=== PATIENT | male | born 1980 | race Caucasian/White ===

== ENCOUNTER 2019-07-14 16:18 | Emergency (ER) | payer SELFPAY ==
[~2019-07-14] VITALS: Ht 180.3 cm; Wt 94.4 kg
[2019-07-14] MEDS ORDERED: NS 1,000 ML IV ONE (17:00)
[2019-07-14 17:13] LABS: BASO # 0.1 10^3/uL (0.0-0.2); BASO % 0.5 % (0.0-1.0); EOS % 0.4 % (0.0-3.0); HEMATOCRIT 50.9 % (42.0-52.0); HEMOGLOBIN 17.7 g/dl (13.5-17.5); LYMPH % 21.5 % (24.0-44.0); MEAN CORPUSCULAR HEMOGLOBIN 29.9 pg (27.0-33.0); MEAN CORPUSCULAR HGB CONC 34.8 g/dl (32.0-36.5); MEAN CORPUSCULAR VOLUME 86.1 fl (80.0-96.0); MONO # 0.6 10^3/uL (0.0-0.8); MONO % 6.5 % (0.0-5.0); NEUTROPHILS # 6.5 10^3/uL (1.5-8.5); NEUTROPHILS % 70.9 % (36.0-66.0); PLATELET COUNT, AUTOMATED 276 10^3/uL (150-450); RED BLOOD COUNT 5.91 10^6/uL (4.30-6.10); WHITE BLOOD COUNT 9.1 10^3/uL (4.0-10.0)
--- NOTE | 2019-07-14 17:28 | REP ---
HISTORY: Abdominal pain. COMPARISON: None. FINDINGS: The superior mediastinal structures are midline. The cardiac silhouette is unremarkable in size, shape and position. The diaphragmatic surfaces of the lungs are regular and the costophrenic angles are clear. The pulmonary jackson are clear. The imaged osseous structures are intact. The lung jackson are hyperexpanded. IMPRESSION: There is no acute cardiopulmonary disease. The lung jackson are hyperexpanded. Electronically Signed by Catalino Oneal DO 07/14/2019 06:47 P
[2019-07-14 17:29] LABS: INR 1.03; PROTHROMBIN TIME 13.2 SECONDS (11.8-14.0)
[2019-07-14 17:30] LABS: PARTIAL THROMBOPLASTIN TIME 29.4 SECONDS (25.0-38.4)
[2019-07-14 17:38] LABS: ALBUMIN 4.9 GM/DL (3.2-5.2); ALT/SGPT 32 U/L (12-78); AMYLASE 49 U/L (25-115); BILIRUBIN,DIRECT 0.2 MG/DL (0.0-0.2); BILIRUBIN,TOTAL 0.4 MG/DL (0.2-1.0); BLOOD UREA NITROGEN 12 MG/DL (7-18); CALCIUM LEVEL 10.2 MG/DL (8.5-10.1); CARBON DIOXIDE LEVEL 25 MEQ/L (21-32); CHLORIDE LEVEL 107 MEQ/L (98-107); CREATININE FOR GFR 0.98 MG/DL (0.70-1.30); GLOMERULAR FILTRATION RATE > 60.0 (>60); GLUCOSE, FASTING 101 MG/DL (70-100); LIPASE 112 U/L (73-393); POTASSIUM SERUM 4.2 MEQ/L (3.5-5.1); SODIUM LEVEL 139 MEQ/L (136-145); TOTAL PROTEIN 8.4 GM/DL (6.4-8.2)
[2019-07-14] MEDS ORDERED: ISOVUE-370 76% 100ML VIAL (Q9967) As Ordered ONE (17:43)
--- NOTE | 2019-07-14 18:07 | REPVR ---
PROCEDURE INFORMATION: Exam: CT Abdomen And Pelvis With Contrast Exam date and time: 07/14/2019 5:48 PM Age: 38 years old Clinical indication: Abdominal pain; Generalized; Additional info: Rectal bleeding, n/v, night sweats TECHNIQUE: Imaging protocol: Computed tomography of the abdomen and pelvis with intravenous contrast. Radiation optimization: All CT scans at this facility use at least one of these dose optimization techniques: automated exposure control; mA and/or kV adjustment per patient size (includes targeted exams where dose is matched to clinical indication); or iterative reconstruction. Contrast material: ISOVUE 370; Contrast volume: 100 ml; Contrast route: IV; COMPARISON: No relevant prior studies available. FINDINGS: Liver: There is a diffuse decrease in hepatic parenchymal density, consistent with steatosis. Gallbladder and bile ducts: Normal. No calcified stones. No ductal dilation. Pancreas: Normal. No ductal dilation. Spleen: Normal. No splenomegaly. Adrenals: Normal. No mass. Kidneys and ureters: Normal. No hydronephrosis. Stomach and bowel: Unremarkable. No obstruction. No mucosal thickening. Appendix: No evidence of appendicitis. Intraperitoneal space: Unremarkable. No free air. No significant fluid collection. Vasculature: Unremarkable. No abdominal aortic aneurysm. Lymph nodes: Unremarkable. No enlarged lymph nodes. Bladder: Unremarkable as visualized. Reproductive: Unremarkable as visualized. Bones/joints: Unremarkable. No acute fracture. Soft tissues: Unremarkable. IMPRESSION: 1. There is a diffuse decrease in hepatic parenchymal density, consistent with steatosis. 2. No acute findings. Electronically signed by: Villa Pinto On 07/14/2019 18:07:28 PM
[2019-07-14 18:38] VITALS: BP 172/109
[2019-07-14] MEDS ORDERED: LISI-538 PO (18:40)
[2019-07-14] MEDS ORDERED: lisinopriL 20 MG TAB PO ONE (18:45)
== END 2019-07-14 18:51 | disposition home or self-care (01) ==
LOC: M ED 16:18
DX: K64.4 Residual hemorrhoidal skin tags (principal); K62.5 Hemorrhage of anus and rectum; R11.2 Nausea with vomiting, unspecified; I10 Essential (primary) hypertension; F17.210 Nicotine dependence, cigarettes, uncomplicated
CPT/HCPCS: 71046; 74177; 80048; 80076; 82150; 83690; 85025; 85610; 85730; 96360; 99284; Q9967

== ENCOUNTER → 2020-12-07 | Outpatient (CLI) | payer SELFPAY ==
[~2020-12-07] MED LIST: LISI20TA33 PO
--- NOTE | 2020-12-07 15:11 | REP ---
INDICATION: W[place]. COMPARISON: July 13. TECHNIQUE: Two views.. FINDINGS: The lungs are well inflated and free of infiltrate. The pleural angles are sharp. The heart size is normal. Pulmonary vasculature is not increased. No significant bony abnormality is seen. IMPRESSION: Negative chest x-ray. <Electronically signed by Sundar Livingston > 12/07/20 [id number]
== END ==
LOC: M ADAMS 14:49
PROVIDERS: ATTEND Physician Assistant
DX: R06.00 Dyspnea, unspecified (principal)

== ENCOUNTER → 2020-12-07 | Outpatient (REF) | payer SELFPAY ==
[2020-12-07 16:40] LABS: BASO # 0.1 10^3/uL (0.0-0.2); BASO % 0.6 % (0.0-1.0); EOS # 0.2 10^3/uL (0.0-0.5); EOS % 1.3 % (0.0-3.0); HEMATOCRIT 48.2 % (42.0-52.0); HEMOGLOBIN 16.9 g/dl (13.5-17.5); LYMPH # 2.4 10^3/uL (1.5-5.0); LYMPH % 20.5 % (24.0-44.0); MEAN CORPUSCULAR HEMOGLOBIN 31.7 pg (27.0-33.0); MEAN CORPUSCULAR HGB CONC 35.1 g/dl (32.0-36.5); MEAN CORPUSCULAR VOLUME 90.4 fl (80.0-96.0); MONO % 8.5 % (2.0-8.0); NEUTROPHILS # 7.9 10^3/uL (1.5-8.5); NEUTROPHILS % 68.3 % (36.0-66.0); PLATELET COUNT, AUTOMATED 208 10^3/uL (150-450); RED BLOOD COUNT 5.33 10^6/uL (4.30-6.10); WHITE BLOOD COUNT 11.5 10^3/uL (4.0-10.0)
[2020-12-07 17:13] LABS: ALBUMIN 4.5 GM/DL (3.2-5.2); ALT/SGPT 161 U/L (12-78); BILIRUBIN,TOTAL 0.5 MG/DL (0.2-1.0); BLOOD UREA NITROGEN 18 MG/DL (7-18); CALCIUM LEVEL 9.5 MG/DL (8.5-10.1); CARBON DIOXIDE LEVEL 22 MEQ/L (21-32); CHLORIDE LEVEL 108 MEQ/L (98-107); CHOLESTEROL LEVEL 238 MG/DL (<200); CHOLESTEROL RISK RATIO 3.552 (<5); CREATININE FOR GFR 1.06 MG/DL (0.70-1.30); FREE T4 0.86 NG/DL (0.76-1.46); GLOMERULAR FILTRATION RATE > 60.0 (>60); GLUCOSE, FASTING 79 MG/DL (70-100); HDL CHOLESTEROL 67 MG/DL (>40); NON-HDL-C 171 MG/DL; POTASSIUM SERUM 3.9 MEQ/L (3.5-5.1); SODIUM LEVEL 138 MEQ/L (136-145); TOTAL PROTEIN 7.8 GM/DL (6.4-8.2); TRIGLYCERIDES LEVEL 405 MG/DL (<150)
[2020-12-07 17:15] LABS: CREATININE, URINE 97.1 MG/DL; FOLATE 10.6 NG/ML; MALB URINE SIEMENS 12.3 MG/L; MAU/CREAT RATIO 12.6 MCG/MG (0.0-30.0); TOTAL 25(OH) VITAMIN D 16.9 NG/ML (30.0-100.0); VITAMIN B12 LEVEL 395 PG/ML
== END ==
LOC: M SFHCADAM 14:49
PROVIDERS: ATTEND Physician Assistant
DX: R06.00 Dyspnea, unspecified (principal); F17.210 Nicotine dependence, cigarettes, uncomplicated; Z72.89 Other problems related to lifestyle; I10 Essential (primary) hypertension; R53.82 Chronic fatigue, unspecified; G56.02 Carpal tunnel syndrome, left upper limb; Z13.220 Encounter for screening for lipoid disorders

== ENCOUNTER 2021-01-16 07:49 | Outpatient (CLI) | payer OTHER ==
[~2021-01-16 07:49] MED LIST changes: +ALBUTEROL 90 MCG/ACT 8GM HFA INHALER INH PRN; +ALBUTEROL SULFATE 2.5 MG/0.5 ML INH NEB SOLN INH PRN; +EPINEPHrine INJ 1 MG/ML 1ML AMP IM PRN; +NS 1,000 ML IV SCH; +diphenhydrAMINE 50MG/ML VIAL (J1200) IV PRN; +methylPREDNISolone 125MG 2ML VIAL IV PRN
[2021-01-16 08:05] VITALS: BP 182/82
[2021-01-16] MEDS ORDERED: diphenhydrAMINE 25MG CAP PO ONE (09:00)
[2021-01-16] MEDS ORDERED: methylPREDNISolone 125MG 2ML VIAL IV ONE (09:00)
[2021-01-16] MEDS ORDERED: ACETAMINOPHEN TAB 650MG DOSE (2X325MG) PO ONE (09:00)
[2021-01-16] MEDS ORDERED: BAMLANIVIMAB 700 MG, ETESEVIMAB 1,400 MG in NS 250 ML IV ONE (09:00)
[2021-01-16 09:45] VITALS: BP 156/94
[2021-01-16 10:15] VITALS: BP 178/107
[2021-01-16 10:45] VITALS: BP 177/98
[2021-01-16] MEDS ORDERED: amLODIPine 5 MG TAB PO ONE (11:40)
[2021-01-16 11:45] VITALS: BP 165/98
[2021-01-16 11:51] VITALS: BP 177/98
== END 2021-01-16 14:00 | disposition home or self-care (01) ==
LOC: M OPCLI4PR 07:49
PROVIDERS: ATTEND Family Medicine
DX: U07.1 COVID-19 (principal)
CPT/HCPCS: 96375; J2930; M0245

== ENCOUNTER → 2021-06-27 | Outpatient (REF) | payer MEDICAID, OTHER ==
[~2021-06-27] MED LIST changes: -ALBUTEROL 90 MCG/ACT 8GM HFA INHALER INH PRN; -ALBUTEROL SULFATE 2.5 MG/0.5 ML INH NEB SOLN INH PRN; -EPINEPHrine INJ 1 MG/ML 1ML AMP IM PRN; -NS 1,000 ML IV SCH; -diphenhydrAMINE 50MG/ML VIAL (J1200) IV PRN; -methylPREDNISolone 125MG 2ML VIAL IV PRN
[2021-06-27 16:47] LABS: ALBUMIN 4.7 GM/DL (3.2-5.2); ALT/SGPT 144 U/L (12-78); BILIRUBIN,TOTAL 0.5 MG/DL (0.2-1.0); BLOOD UREA NITROGEN 10 MG/DL (7-18); CALCIUM LEVEL 9.4 MG/DL (8.5-10.1); CARBON DIOXIDE LEVEL 24 MEQ/L (21-32); CHLORIDE LEVEL 106 MEQ/L (98-107); FERRITIN 593 NG/ML (26-388); GLOMERULAR FILTRATION RATE > 60.0 (>60); GLUCOSE, FASTING 98 MG/DL (70-100); POTASSIUM SERUM 4.2 MEQ/L (3.5-5.1); SODIUM LEVEL 139 MEQ/L (136-145)
[2021-06-29 21:21] LABS: ANA (HEP2) Positive (.); ANTI-MITOCHONDRIAL ANTIBODY <20.0 Units (0.0-20.0)
== END ==
LOC: M SFHCADAM 11:44
PROVIDERS: ATTEND Physician Assistant
DX: R74.8 Abnormal levels of other serum enzymes (principal)

== ENCOUNTER → 2021-08-06 | Outpatient (CLI) | payer OTHER | LOC: M WHC 06:39 | PROVIDERS: ATTEND Physician Assistant | DX: R74.8 Abnormal levels of other serum enzymes (principal); Z72.89 Other problems related to lifestyle ==

== ENCOUNTER → 2021-08-29 | Outpatient (REF) | payer OTHER ==
[2021-08-29 13:17] LABS: ALBUMIN 4.4 GM/DL (3.2-5.2); ALT/SGPT 105 U/L (12-78); BILIRUBIN,TOTAL 0.4 MG/DL (0.2-1.0); BLOOD UREA NITROGEN 12 MG/DL (7-18); CALCIUM LEVEL 10.5 MG/DL (8.5-10.1); CARBON DIOXIDE LEVEL 23 MEQ/L (21-32); CHLORIDE LEVEL 106 MEQ/L (98-107); CREATININE FOR GFR 0.98 MG/DL (0.70-1.30); GLOMERULAR FILTRATION RATE > 60.0 (>60); GLUCOSE, FASTING 104 MG/DL (70-100); POTASSIUM SERUM 4.1 MEQ/L (3.5-5.1); RHEUMATOID FACTOR QUANT < 10.0 IU/ML (<15.0); SODIUM LEVEL 140 MEQ/L (136-145); TOTAL PROTEIN 8.1 GM/DL (6.4-8.2)
[2021-09-02 21:06] LABS: ANA (HEP2) Positive (.)
== END ==
LOC: M SFHCADAM 11:43
PROVIDERS: ATTEND Physician Assistant
DX: R74.8 Abnormal levels of other serum enzymes (principal); R79.89 Other specified abnormal findings of blood chemistry; R76.8 Other specified abnormal immunological findings in serum; Z72.89 Other problems related to lifestyle